=== PATIENT | female | born 1945 | race Caucasian/White ===

== ENCOUNTER → 2017-07-20 | Outpatient (CLI) | payer MEDICARE, BC ==
[~2017-07-20] VITALS: Ht 167.6 cm; Wt 71.8 kg
[~2017-07-20] MED LIST: ANTIVERT 25MG25 MG PO; ASPIRIN 32325 MG/TAB PO; COUMADIN PO; FELDENE10 MG PO; FERROUS SU325 MG/TAB PO; FOLIC ACID PO; MOBIC 7.5MG7.5 MG PO; NORCO 325 MG-51 TAB PO; STOOL SOFTENER100 M2 PO; TYLENOL PM EXTR1 TA1 PO; VITAMIN C500 MG PO; ZANTAC 150MG T150 MG PO; ZOCOR 20MG20 MG PO
[2017-07-20 10:54] VITALS: BP 130/77; PULSE 58
[2017-07-20 12:08] VITALS: PULSE 95
[2017-07-20 12:09] VITALS: BP 150/88; PULSE 104
[2017-07-20 12:10] VITALS: BP 130/78; PULSE 83
== END ==
LOC: COL.CARD 10:37
DX: R06.02 Shortness of breath (principal); R10.9 Unspecified abdominal pain; R07.9 Chest pain, unspecified
CPT/HCPCS: A9502; J2785

== ENCOUNTER 2018-05-26 11:50 | Emergency (ER) | payer MEDICARE, BC ==
[~2018-05-26] VITALS: Ht 167.6 cm; Wt 72.7 kg
[2018-05-26 11:55] VITALS: TEMP 98
[2018-05-26 12:32] LABS: BASO # 0.1 (0.0-0.2); BASO % 0.8 % (0.0-2.0); EOS # 0.1 (0.0-0.7); EOS % 1.6 % (0-4.0); GRAN # 4.2 (1.4-6.5); HEMATOCRIT 43.4 % (37.0-47.0); HEMOGLOBIN 14.6 g/dl (12.5-16.0); LYMPH # 3.4 (1.2-3.4); MEAN CELL VOLUME 94 fl (80.0-100.0); MEAN CORPUSCULAR HEMOGLOBIN 32 pg (27.0-31.0); MEAN CORPUSCULAR HGB CONC 34 g/dl (33.0-37.0); MEAN PLATELET VOLUME 9.9 fl (7.4-10.4); MONO # 0.4 (0.1-0.6); MONO % 5.2 % (1.7-9.3); PLATELET COUNT 216 K/mm3 (130-400); RED BLOOD COUNT 4.63 M/mm3 (4.10-5.30); REDCELL DISTRIBUTION WIDTH-CV 12.9 % (11.5-14.5)
[2018-05-26 12:42] LABS: ALANINE AMINOTRANSFERASE 28 U/L (9-52); ALBUMIN 4.2 gm/dL (3.5-5.0); ALKALINE PHOSPHATASE 55 U/L (50-136); ANION GAP 10 mmol/L (7-16); AST,SGOT 22 U/L (15-37); BILIRUBIN,TOTAL 0.4 mg/dL (0.0-1.0); BLOOD UREA NITROGEN 18 mg/dL (7-17); CALCIUM 10.3 mg/dL (8.4-10.2); CARBON DIOXIDE 27 mmol/L (22-30); CHLORIDE 101 mmol/L (98-107); CREATINE KINASE 36 U/L (30-135); CREATININE, serum 0.86 mg/dL (0.52-1.25); GLUCOSE 93 mg/dL (74-106); INR 0.9 (0.8-3.0); LIPASE 76 U/L (23-300); POTASSIUM 4.2 mmol/L (3.4-5.0); SODIUM 138 mmol/L (137-145)
[2018-05-26 12:59] LABS: TROPONIN-I < 0.012 ng/mL (0.000-0.034)
[2018-05-26] MEDS ORDERED: ZOFRAN ODT4 MG PO (14:30)
[2018-05-26] MEDS ORDERED: ANTIVERT 25MG25 MG PO (14:30)
[2018-05-26 14:40] VITALS: BP 150/72; PULSE 64
== END 2018-05-26 14:40 | disposition home or self-care (01) ==
LOC: COL.ER 11:50
PROVIDERS: Emergency Medicine
DX: S09.90XA Unspecified injury of head, initial encounter (principal); R42 Dizziness and giddiness; F17.210 Nicotine dependence, cigarettes, uncomplicated; Z90.49 Acquired absence of other specified parts of digestive tract; Z98.890 Other specified postprocedural states; W01.10XA Fall on same level from slipping, tripping and stumbling with subsequent striking against unspecified object, initial encounter
CPT/HCPCS: J2405; J7030

== ENCOUNTER → 2018-11-15 | Outpatient (CLI) | payer MEDICARE, BC ==
[~2018-11-15] MED LIST changes: +ZOFRAN ODT4 MG PO
== END ==
LOC: COL.RAD 12:28
DX: M46.1 Sacroiliitis, not elsewhere classified (principal)
CPT/HCPCS: G0260; J3301

== ENCOUNTER → 2019-07-18 | Outpatient (CLI) | payer MEDICARE, BC | LOC: COL.VAS 12:02 | DX: R01.1 Cardiac murmur, unspecified (principal) ==

== ENCOUNTER 2019-07-30 06:50 | Outpatient (CLI) | payer MEDICARE, BC ==
[~2019-07-30] VITALS: Ht 167.7 cm; Wt 70.0 kg
[2019-07-30 07:40] VITALS: BP 101/78; PULSE 65; TEMP 97.7
[2019-07-30 07:43] LABS: HEMATOCRIT 40.6 % (37.0-47.0); HEMOGLOBIN 13.2 g/dl (12.5-16.0); MEAN CELL VOLUME 97 fl (80.0-100.0); MEAN CORPUSCULAR HEMOGLOBIN 31 pg (27.0-31.0); MEAN CORPUSCULAR HGB CONC 33 g/dl (33.0-37.0); MEAN PLATELET VOLUME 10.3 fl (7.4-10.4); PLATELET COUNT 318 K/mm3 (130-400); REDCELL DISTRIBUTION WIDTH-CV 12.6 % (11.5-14.5)
[2019-07-30] MEDS ORDERED: TYLENOL 500MG500 MG PO (07:44)
[2019-07-30] MEDS ORDERED: ULTRAM 50MG TAB50 MG PO (07:45)
[2019-07-30 07:46] LABS: PROTHROMBIN TIME 11.8 SECONDS (9.7-12.8)
[2019-07-30] MEDS ORDERED: COLACE 100100 MG/CAP PO (07:46)
[2019-07-30] MEDS ORDERED: XANAX 0.5MG0.5 MG PO (07:46)
[2019-07-30 07:48] LABS: CALCIUM 10.2 mg/dL (8.4-10.2); CREATININE, serum 0.77 (0.52-1.25); POTASSIUM 4.1 mmol/L (3.4-5.0)
[2019-07-30 09:40] VITALS: BP 106/67; PULSE 62
--- NOTE | 2019-07-30 09:40 | NUR ---
pt sits up in bed, awake, c/o h/a, requests coffee, call light in reach
[2019-07-30] MEDS ORDERED: ASPIRIN 81M81 MG/TA2 PO (09:55)
[2019-07-30 10:00] VITALS: BP 109/66; PULSE 61
--- NOTE | 2019-07-30 10:00 | NUR ---
pt up to b/r, gait steady with help due to knee surgery. voided, sits on side of bed, takes snack, family in room, chest x-ray done as ordered
[2019-07-30 10:15] VITALS: BP 109/70; PULSE 62
[2019-07-30 10:30] VITALS: BP 108/78; PULSE 60
[2019-07-30 11:00] VITALS: BP 102/71; PULSE 67
--- NOTE | 2019-07-30 11:00 | NUR ---
pt up and dressed, iv d'cd intact, Dr Byrnes into see pt before discharge, then reviewed discharge inst. with pt and family on sedation precautions, followup and new medication low dose aspirin with verbal understanding.
--- NOTE | 2019-07-30 11:20 | NUR ---
pt discharged via w/c to car with family
== END 2019-07-30 11:20 | disposition home or self-care (01) ==
LOC: COL.RAD 06:50
PROVIDERS: Internal Medicine Cardiovascular Disease
DX: Q21.1 Atrial septal defect (principal); R06.02 Shortness of breath
CPT/HCPCS: J2704; J7120

== ENCOUNTER 2019-08-15 19:45 | Emergency (ER) | payer MEDICARE, BC ==
[~2019-08-15] VITALS: Ht 167.6 cm; Wt 70.0 kg
[~2019-08-15 19:45] MED LIST changes: +ASPIRIN 81M81 MG/TA2 PO; +COLACE 100100 MG/CAP PO; +TYLENOL 500MG500 MG PO; +ULTRAM 50MG TAB50 MG PO; +XANAX 0.5MG0.5 MG PO
[2019-08-15 19:52] VITALS: BP 110/56; TEMP 98.6
[2019-08-15 20:45] LABS: COLLECTION METHOD CLEAN CATCH
[2019-08-15 20:56] LABS: MUCOUS Present /lpf; PH 5 (5-8); URINE APPEARANCE Hazy; URINE BACTERIA None Seen /hpf; URINE BILIRUBIN Negative (NEGATIVE); URINE BLOOD 1+ (NEGATIVE); URINE CALCIUM OXALATE CRYSTAL Present /hpf; URINE COLOR Yellow; URINE GLUCOSE Negative (NEGATIVE); URINE KETONE Trace (NEGATIVE); URINE LEUKOCYTE ESTERASE Negative (NEGATIVE); URINE NITRATE Negative (NEGATIVE); URINE PROTEIN(semi-quant) Negative (NEGATIVE); URINE RBC 0-2 /hpf; URINE UROBILINOGEN Negative (NEGATIVE)
[2019-08-15 21:11] LABS: BASO # 0.1 (0.0-0.2); BASO % 0.4 % (0.0-2.0); EOS # 0.1 (0.0-0.7); GRAN # 8.9 (1.4-6.5); GRAN % 63.7 % (42.2-75.2); HEMATOCRIT 41.2 % (37.0-47.0); HEMOGLOBIN 13.5 g/dl (12.5-16.0); LYMPH # 3.8 (1.2-3.4); LYMPH % 27.1 % (20.0-51.0); MEAN CELL VOLUME 96 fl (80.0-100.0); MEAN CORPUSCULAR HEMOGLOBIN 32 pg (27.0-31.0); MEAN CORPUSCULAR HGB CONC 33 g/dl (33.0-37.0); MONO % 7.3 % (1.7-9.3); PLATELET COUNT 225 K/mm3 (130-400); RED BLOOD COUNT 4.28 M/mm3 (4.10-5.30); REDCELL DISTRIBUTION WIDTH-CV 12.6 % (11.5-14.5)
[2019-08-15 21:21] LABS: ALANINE AMINOTRANSFERASE 12 U/L (9-52); ALBUMIN 4.2 gm/dL (3.5-5.0); ALKALINE PHOSPHATASE 63 U/L (50-136); ANION GAP 10 mmol/L (7-16); AST,SGOT 22 U/L (15-37); BILIRUBIN,TOTAL 0.8 mg/dL (0.0-1.0); BLOOD UREA NITROGEN 24 mg/dL (7-17); CALCIUM 9.8 mg/dL (8.4-10.2); CARBON DIOXIDE 26 mmol/L (22-30); CHLORIDE 102 mmol/L (98-107); CREATINE KINASE 34 U/L (30-135); CREATININE, serum 0.79 (0.52-1.25); GLUCOSE 95 mg/dL (74-106); LIPASE 37 U/L (23-300); POTASSIUM 4.2 mmol/L (3.4-5.0); SODIUM 138 mmol/L (137-145); TOTAL PROTEIN 7.3 gm/dL (6.4-8.2)
[2019-08-15 21:25] LABS: C-REACTIVE PROTEIN 7.7 mg/dL (0.0-0.9)
[2019-08-15 21:32] LABS: TROPONIN-I < 0.012 ng/mL (0.000-0.035)
[2019-08-15] MEDS ORDERED: FLAGYL500 MG PO (22:55)
[2019-08-15] MEDS ORDERED: CIPRO 500MG TA500 MG PO (22:55)
[2019-08-15] MEDS ORDERED: ZOFRAN 4MG T4 MG/TAB PO (22:55)
[2019-08-15] MEDS ORDERED: NEXIUM 20MG20 MG PO (22:55)
[2019-08-15 23:05] VITALS: PULSE 82
== END 2019-08-15 23:05 | disposition home or self-care (01) ==
LOC: COL.ER 19:45
PROVIDERS: Emergency Medicine
DX: K57.92 Diverticulitis of intestine, part unspecified, without perforation or abscess without bleeding (principal); R06.00 Dyspnea, unspecified; Z98.890 Other specified postprocedural states
CPT/HCPCS: J2405; J3010; J7030; Q9967

== ENCOUNTER → 2019-08-21 | Outpatient (CLI) | payer MEDICARE, BC ==
[~2019-08-21] MED LIST changes: +CIPRO 500MG TA500 MG PO; +FLAGYL500 MG PO; +NEXIUM 20MG20 MG PO; +ZOFRAN 4MG T4 MG/TAB PO
== END ==
LOC: COL.PUL 08-13 08:00
DX: R06.02 Shortness of breath (principal)

== ENCOUNTER → 2019-11-27 | Outpatient (CLI) | payer MEDICARE, BC | LOC: COL.RAD 12:39 | DX: M46.1 Sacroiliitis, not elsewhere classified (principal) | CPT/HCPCS: G0260; J3301 ==

== ENCOUNTER → 2023-07-13 | Outpatient (CLI) | payer MEDICARE, BC | LOC: COL.VAS 08:17 | DX: I51.7 Cardiomegaly (principal) ==

== ENCOUNTER → 2023-07-17 | Outpatient (CLI) | payer MEDICARE, BC | LOC: COL.RAD 08:38 | DX: Z12.2 Encounter for screening for malignant neoplasm of respiratory organs (principal); F17.200 Nicotine dependence, unspecified, uncomplicated ==

== ENCOUNTER → 2023-07-19 | Outpatient (CLI) | payer MEDICARE, BC | LOC: COL.CARD 07:49 | DX: R00.2 Palpitations (principal) ==

== ENCOUNTER 2024-02-20 14:23 | Outpatient (RCR) | payer MEDICARE, BC ==
[~2024-02-20 14:23] MED LIST changes: +CLEOCIN HCL300 MG PO; +PRILOSEC 20MG20 MG PO; +PROAIR HFA0.09 MG/AC IH; +TOPROL XL 25MG25 MG PO; +VISINE TEARS 0.30 ML OU
== END 2024-02-26 | disposition home or self-care (01) ==
LOC: WSST
DX: J69.0 Pneumonitis due to inhalation of food and vomit (principal)